=== PATIENT | male | born 1970 | race Caucasian/White ===

== ENCOUNTER 2018-06-06 06:24 | Day surgery (SDC) | payer OTHER ==
[2018-06-03 15:41] VITALS: BMI 29.6
[2018-06-06] MEDS ORDERED: BUPIVACAINE HCL/PF 0.5% (5MG/ML) 10 ML VIAL ONE (07:14)
[2018-06-06] MEDS ORDERED: fentaNYL CITRATE 250 MCG/5 ML VIAL ONE (07:18)
[2018-06-06] MEDS ORDERED: ROCURONIUM BROMIDE 50 MG/5 ML VIAL ONE ×2 (07:18→09:50)
[2018-06-06] MEDS ORDERED: SUCCINYLCHOLINE CHLORIDE 200 MG/10 ML VIAL ONE (07:18)
[2018-06-06] MEDS ORDERED: PROPOFOL 20 ML ONE (07:18)
[2018-06-06] MEDS ORDERED: DEXAMETHASONE SOD PHOSPHATE 4 MG/1 ML VIAL ONE (07:19)
[2018-06-06] MEDS ORDERED: LIDOCAINE HCL/PF 2% SDV 5ML VIAL ONE (07:19)
[2018-06-06] MEDS ORDERED: MIDAZOLAM HCL 2 MG/2 ML SINGLE DOSE VIAL ONE (08:05)
--- NOTE | 2018-06-06 08:11 | HP ---
History & Physical Update - History History: No Change - Physical Physical: No Change - Assessment Assessment: No Change - Plan Plan: No Change
[2018-06-06] MEDS ORDERED: ceFAZolin SODIUM 1 GM VIAL IVPB ONE (08:20)
[2018-06-06] MEDS ORDERED: ceFAZolin SODIUM 1 GM VIAL ONE (08:21)
[2018-06-06] MEDS ORDERED: oxyCODONE HCL 5 MG TABLET PO PRN ×2 (09:27)
[2018-06-06] MEDS ORDERED: ONDANSETRON 4 MG/2 ML VIAL IVPUSH PRN (09:27)
[2018-06-06] MEDS ORDERED: NEOSTIGMINE METHYLSULFATE 0.5 MG/ML - 10 ML MDV ONE (11:29)
--- NOTE | 2018-06-06 11:43 | OP ---
<Paul Eastman - Last Filed: 06/06/18 11:42> Operative Note - Note: Operative Date: 06/06/18 Pre-Operative Diagnosis: Ventral hernia Operation: Robotic assisted ventral hernia repair with mesh Post-Operative Diagnosis: Same as Pre-op Anesthesia: General Estimated Blood Loss (mls): 10 Fluid Volume Replaced (mls): 1,300 Operative Report Dictated: Yes <Joaquim Nicolas - Last Filed: 06/06/18 11:46> Operative Note - Note: Estimated Blood Loss (mls): 15
--- NOTE | 2018-06-06 11:44 | SURG ---
Surgery Otr Flatbed Driver Note Otr Flatbed Driver: Paul Eastman PA-C Date of Service: 06/06/18 Diagnosis: Ventral hernia Procedure: Robotic assisted ventral hernia repair with mesh I was present for the entirety of the operative procedure. For further detail, please refer to operative report.
[2018-06-06] MEDS ORDERED: oxyCODONE HCL 5 MG TABLET ONE ×2 (14:25→15:11)
[2018-06-06 14:42] VITALS: TEMP 97.7
--- NOTE | 2018-06-06 16:34 | OP ---
DATE OF OPERATION: DATE OF DICTATION: 06/06/2018 PROCEDURE: Robotic assisted laparoscopic ventral hernia repair. PREOPERATIVE DIAGNOSIS: Ventral hernia. POSTOPERATIVE DIAGNOSIS: Ventral hernia. SURGEON: Joaquim Nicolas M.D. DEFENSIVE FIRE CONTROL SYSTEMS OPERATOR: Robbie Hernandez ANESTHESIA: General endotracheal. FINDINGS AND PROCEDURE: This is a 47-year-old male presents with a bulge of the epigastric area which was nonreducible. On physical examination, patient has 4- cm bulge of the supraumbilical/epigastric region, so patient was advised hernia repair and consent was obtained after discussing the risks, benefits, and alternatives of the procedure. Patient was brought to the operating room and placed in supine position. General endotracheal anesthesia was administered. A roll was placed behind the patient' s left flank. The left arm was then tucked to the side. The abdomen was prepped and draped in the usual sterile fashion. Using 0.5% Marcaine local anesthesia was administered to the proposed incision sites. The peritoneal cavity was entered using the Veress needle technique via an 8-mm left subcostal incision behind the anterior axillary line. Pneumoperitoneum was established. An 8-mm port was inserted to the peritoneal cavity followed by insertion of the 3-D laparoscope. The peritoneal cavity was carefully inspected and was noted to be free of inadvertent injury. The ventral hernia above the umbilicus was noted to be covered with moderate amount of preperitoneal fat. Two 8-mm ports were inserted 7 mm away from each other, one at the level of the umbilicus near the anterior axillary line and one at the left lower quadrant. The target organ was then set and the robotic arms were docked. The 3-D laparoscope was placed in the middle port and a fenestrated grasper connected to bipolar cautery was inserted into the left lower quadrant port. The endowrist yariel connected to monopolar cautery was inserted in the subcostal port. The undersigned then scrubbed out to commence the console part of the procedure. The peritoneum was incised about 5 cm away from the midline from the left side using the EndoWrist yariel. Preperitoneal pocket was then created by combined blunt and sharp dissection with the robotic instruments. The hernia was reduced containing large amount of preperitoneal fat. Dissection was carried towards the right side up to about 5 cm from the midline. Superiorly dissection was carried toward the area of the falciform ligament and inferiorly toward the pubis for about 15 cm in length. After the hernia was completely reduced, the fascial defect was apposed using the non absorbable V-Loc number 1 suture. Afterwards the 15 x 10 cm ProGrip mesh was deployed to the posterior abdominal wall to reinforce the hernia repair. The pocket was then closed with a continuous V-Loc 2-0 absorbable suture. Afterwards, the preperitoneal fat and part of the hernia sac was placed in endobag and extracted via the left subcostal port which was switched to an 11-mm port. The pneumoperitoneum was evacuated, and the ports were removed. The wounds were closed with subcuticular Biosyn 4-0 sutures reinforced with Dermabond. Abdominal binder was then applied, patient was successfully extubated and transferred to the postanesthesia care unit in satisfactory condition. Estimated blood loss was about 10 mL. Wound class clean. Patient received 2 g of Ancef prior to the start of the procedure. Jj [id number] MTDD
[2018-06-06 19:10] VITALS: BP 111/71; PULSE 77
--- NOTE | 2018-06-09 15:22 | PATH ---
Surgical Pathology Report Patient Name: MYKEL SANDOVAL [facility]. Rec. #: [id number] /Age/Gender: 1970 (Age: 47) / M Account: [id number] Location: [facility] SURGICAL Taken: 06/06/2018 Received: 06/06/2018 Reported: 06/09/2018 Physicians: Joaquim Nicolas M.D. Specimen(s) Received HERNIA SAC AND FAT Clinical History Ventral hernia Final Diagnosis HERNIA SAC AND FAT, EXCISION: MATURE ADIPOSE TISSUE AND FIBROUS TISSUE CONSISTENT WITH HERNIA SAC. Electronically Signed Ibrahima Lockhart M.D. Gross Description Received in formalin labeled "hernial sac and fat," is a 7.0 x 5.5 x 1.6 cm aggregate of rios-yellow portions of fibrous tissue and fat. [employer]or sections are submitted in one cassette. /06/06/2018 saudi06/06/2018
== END 2018-06-06 19:20 | disposition home or self-care (01) ==
LOC: JASU-SURG 06:24
PROVIDERS: ATTEND Surgery
PROC: 8E0W4CZ Robotic Assisted Procedure of Trunk Region, Percutaneous Endoscopic Approach (ICD-10-PCS; 2018-06-06)
PROC: 0WQF4ZZ Repair Abdominal Wall, Percutaneous Endoscopic Approach (ICD-10-PCS; principal; 2018-06-06 08:00)
DX: K43.9 Ventral hernia without obstruction or gangrene (principal)
CPT/HCPCS: 49652; S2900; 88302-TC; 94760